=== PATIENT | male | born 1980 | race Caucasian/White ===

== ENCOUNTER 2017-09-23 20:26 | Emergency (ER) | payer OTHER, BC ==
[2017-09-23] MEDS ORDERED: IBUPROFEN 800 MG TABLET PO ONE (23:11)
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
[2017-09-23] MEDS ORDERED: CYCLOBENZAPRINE HCL 10 MG TABLET PO ONE (23:50)
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
[2017-09-24 04:48] VITALS: BP 139/89
== END 2017-09-24 00:26 | disposition home or self-care (01) ==
LOC: ER 20:26
DX: M54.2 Cervicalgia (principal); V87.7XXA Person injured in collision between other specified motor vehicles (traffic), initial encounter
CPT/HCPCS: 72125; 99284